=== PATIENT | female | born 1950 | race Caucasian/White ===

== ENCOUNTER 2019-02-10 20:41 | Inpatient (IN) | payer OTHER ==
[~2019-02-10] VITALS: Ht 154.9 cm; Wt 90.7 kg
[~2019-02-10 20:41] MED LIST: COZAAR100 MG PO; NAMENDA5 MG PO; NORVASC5 MG PO; ZOCOR40 MG PO
[2019-02-10] MEDS ORDERED: VITAMIN D1000 UNIT (21:03)
[2019-02-10] MEDS ORDERED: FOSAMAX70 MG (21:03)
[2019-02-24] MEDS ORDERED: INTESTINEX680 M1 PO (11:57)
[2019-02-24] MEDS ORDERED: INTEGRA F CAPS1 EACH PO (11:58)
[2019-02-24] MEDS ORDERED: VITAMIN C500 M1 PO (11:59)
[2019-02-24] MEDS ORDERED: PROTEINEX-18 LI30 ML PO (12:00)
[2019-02-24] MEDS ORDERED: Neurin-Sl Tablet Sl SL (12:01)
[2019-02-24] MEDS ORDERED: B Complex CAPSULE PO (12:01)
== END 2019-02-25 18:36 | DRG 466 ==
LOC: ER 20:41 → SURG 02-11 11:58 → SURH 02-11 11:58 → SURG 02-13 16:12
PROVIDERS: ADMIT Orthopaedic Surgery
PROC: CP1D1ZZ Planar Nuclear Medicine Imaging of Left Lower Extremity using Technetium 99m (Tc-99m) (ICD-10-PCS; 2019-02-12)
PROC: B54DZZZ Ultrasonography of Bilateral Lower Extremity Veins (ICD-10-PCS; 2019-02-12)
PROC: B246ZZZ Ultrasonography of Right and Left Heart (ICD-10-PCS; 2019-02-13)
PROC: 0SPD0JZ Removal of Synthetic Substitute from Left Knee Joint, Open Approach (ICD-10-PCS; 2019-02-14)
PROC: 0MDP0ZZ Extraction of Left Knee Bursa and Ligament, Open Approach (ICD-10-PCS; 2019-02-14)
PROC: BP49ZZZ Ultrasonography of Left Shoulder (ICD-10-PCS; 2019-02-14)
PROC: CW1NLZZ Planar Nuclear Medicine Imaging of Whole Body using Gallium 67 (Ga-67) (ICD-10-PCS; 2019-02-14)
PROC: 30233N1 Transfusion of Nonautologous Red Blood Cells into Peripheral Vein, Percutaneous Approach (ICD-10-PCS; 2019-02-16)
PROC: 0SRD0J9 Replacement of Left Knee Joint with Synthetic Substitute, Cemented, Open Approach (ICD-10-PCS; 2019-02-20)
PROC: 0SPD0JZ Removal of Synthetic Substitute from Left Knee Joint, Open Approach (ICD-10-PCS; principal; 2019-02-20 08:45)
DX: T84.54XA Infection and inflammatory reaction due to internal left knee prosthesis, initial encounter (principal); A41.89 Other specified sepsis; I50.41 Acute combined systolic (congestive) and diastolic (congestive) heart failure; D62 Acute posthemorrhagic anemia; M00.262 Other streptococcal arthritis, left knee; M86.141 Other acute osteomyelitis, right hand; T84.018A Broken internal joint prosthesis, other site, initial encounter; B95.1 Streptococcus, group B, as the cause of diseases classified elsewhere; M17.12 Unilateral primary osteoarthritis, left knee; E78.49 Other hyperlipidemia; N39.498 Other specified urinary incontinence; E66.09 Other obesity due to excess calories; I73.89 Other specified peripheral vascular diseases; I87.2 Venous insufficiency (chronic) (peripheral); D72.828 Other elevated white blood cell count; I11.0 Hypertensive heart disease with heart failure; M65.842 Other synovitis and tenosynovitis, left hand; Z96.652 Presence of left artificial knee joint

== ENCOUNTER 2019-04-03 09:52 | Inpatient (IN) | payer OTHER ==
[~2019-04-03] VITALS: Ht 154.9 cm; Wt 77.1 kg
[~2019-04-03 09:52] MED LIST changes: +B Complex CAPSULE PO; +FOSAMAX70 MG; +INTEGRA F CAPS1 EACH PO; +INTESTINEX680 M1 PO; +Neurin-Sl Tablet Sl SL; +PROTEINEX-18 LI30 ML PO; +VITAMIN C500 M1 PO; +VITAMIN D1000 UNIT
--- NOTE | 2019-04-03 10:13 | NUR ---
SE RECIBE PTE EN AMBULANCIA ALERTA Y ORIENTADA X3,ES REFERIDA POR EL ,LA PTE REFIERE QUE NO TIENE LA PROTESIS DE LA PIERNA IZQUIERDA ,REFIERE DOLOR TIENE UN PINE LINE EN EL BRAZO DERECHO,LAILA CANALIZACION,REFIERE DOLOR EN LA MANO IZQUIERDA.
--- NOTE | 2019-04-03 11:18 | NUR ---
PTE ALERTA Y ORIENTADA X3, SE ORIENTA SOBRE ORDENES MEDICAS Y REFIERE ENTENDER. PTE CON PICC LINE EN LADO R+. SE ADMINISTRA IV FLUIDS HUGO ORDEN MEDICA LO CUAL PTE TOLERA. PTE REFIERE DOLOR Y SE ADMINISTRA PERCOTET 1 TAB. SE REALIZAN MUESTRAS DE ALBIN Y PUREBAS SHANNAN PARA REQUISICION DE PRBC'S. SE REALIZA XRAYS. PTE PENDIENTE A INSERCION DE RASHID Y MUESTRA DE U/A.
--- NOTE | 2019-04-03 12:34 | NUR ---
PACIENTE SE LE REALIZA CAMBIO DE PANAL Y SE LE COLOCA RASHID CATHETER POR [place] CON CLAUDE MEDIDAS , SE MANTIENEN EN OBSERVACION PO RCAMBIOS ENSU CONDCION.
--- NOTE | 2019-04-03 16:02 | NUR ---
SE RECIBE PT DE TURNO ANTERIOR, ALERTA, ORIENTADA, CON 40MEQ KCL EN D5W BAJANDO A 125ML/HR.POR PICCLINE EN BRAZO RT. PT PENDIENTE DE SER EVALUADA POR E EAN. SE MANTIENE CON RASHID DRENANDO A GRAVEDAD ORINA AMARILLO SHAUN Y CON 2PRBC EN HOLD.
[2019-04-07] MEDS ORDERED: B COMPLEX # 11 EACH PO (09:07)
== END 2019-04-08 15:04 | DRG 466 ==
LOC: ER 09:52 → SEC-K 18:31 → SURG 18:31
PROVIDERS: Orthopaedic Surgery; ADMIT Internal Medicine
PROC: 0SWD0JZ Revision of Synthetic Substitute in Left Knee Joint, Open Approach (ICD-10-PCS; principal; 2019-04-04 12:00)
PROC: 30233N1 Transfusion of Nonautologous Red Blood Cells into Peripheral Vein, Percutaneous Approach (ICD-10-PCS; 2019-04-06)
PROC: BW28ZZZ Computerized Tomography (CT Scan) of Head (ICD-10-PCS; 2019-04-06)
PROC: 4A12X4Z Monitoring of Cardiac Electrical Activity, External Approach (ICD-10-PCS; 2019-04-06)
PROC: 0T9B70Z Drainage of Bladder with Drainage Device, Via Natural or Artificial Opening (ICD-10-PCS; 2019-04-06)
DX: T84.033A Mechanical loosening of internal left knee prosthetic joint, initial encounter (principal); I63.81 Other cerebral infarction due to occlusion or stenosis of small artery; D62 Acute posthemorrhagic anemia; B37.89 Other sites of candidiasis; T84.018A Broken internal joint prosthesis, other site, initial encounter; E66.01 Morbid (severe) obesity due to excess calories; I73.89 Other specified peripheral vascular diseases; M17.12 Unilateral primary osteoarthritis, left knee; M25.562 Pain in left knee; I10 Essential (primary) hypertension; M62.81 Muscle weakness (generalized); E87.6 Hypokalemia; Z96.652 Presence of left artificial knee joint; R41.89 Other symptoms and signs involving cognitive functions and awareness; N39.498 Other specified urinary incontinence